=== PATIENT | male | born 1985 | race African-American/Black ===

== ENCOUNTER 2017-01-31 14:06 | Emergency (ER) | payer SELFPAY ==
[~2017-01-31] VITALS: Ht 170.2 cm; Wt 145.0 kg
[~2017-01-31 14:06] MED LIST: AMOX500T PO; HYDR-3533 PO; IBUP800T23 PO; MMW SS; PRED20 PO; SULF1TAB47 PO; Z.0.NO CURRENT MEDS
[2017-01-31 14:21] VITALS: BP 178/98; PULSE 102; RESP 20; TEMP 98.2; O2SAT 98
[2017-01-31] MEDS ORDERED: TETANUS/DIPHTHERIA TOXOID ADULT 0.5 ML VIAL IM ONE (16:30)
[2017-01-31] MEDS ORDERED: KETOROLAC TROMETHAMINE 60 MG/2 ML (IM) VIAL IM ONE (16:30)
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
[2017-01-31] MEDS ORDERED: AUGM875T3 PO (18:02)
[2017-01-31] MEDS ORDERED: TRAM50TA PO ×2 (18:49→18:50)
== END 2017-01-31 19:06 | disposition home or self-care (01) ==
LOC: NEPD 14:06
DX: S62.339A Displaced fracture of neck of unspecified metacarpal bone, initial encounter for closed fracture (principal); L03.011 Cellulitis of right finger; Y04.0XXA Assault by unarmed brawl or fight, initial encounter; B95.62 Methicillin resistant Staphylococcus aureus infection as the cause of diseases classified elsewhere
CPT/HCPCS: 73130; 86403; 87070; 87185; 87186; 90471; 90714; 96372; 99284; J1885; 87205